=== PATIENT | male | born 1950 | race Caucasian/White ===

== ENCOUNTER 2023-08-17 11:36 | Emergency (ER) | payer MEDICARE, BC ==
[~2023-08-17] VITALS: Ht 167.6 cm; Wt 74.8 kg
[2023-08-17] MEDS ORDERED: NAPROXEN500 MG PO (13:51)
[2023-08-17 14:17] VITALS: BP 133/83
== END 2023-08-17 14:15 | disposition home or self-care (01) ==
LOC: ED 11:36
DX: M25.561 Pain in right knee (principal); I10 Essential (primary) hypertension